=== PATIENT | female | born 1960 | race African-American/Black ===

== ENCOUNTER 2017-01-15 11:41 | Inpatient (IN) | payer OTHER, BC ==
[2017-01-15 13:59] VITALS: BMI 22.8
--- NOTE | 2017-01-15 15:17 | HP ---
CIWA Score - CIWA Score Nausea/Vomitin Muscle Tremors: 3 Anxiety: 3 Agitation: 3 Paroxysmal Sweats: 2 Orientation: 0-Oriented Tacttile Disturbances: 2-Mild Itch/Numbness/Burn Auditory Disturbances: 2-Mild Harshness/Frighten Visual Disturbances: 2-Mild Sensitivity Headache: 2-Mild CIWA-Ar Total Score: 22 Admission ROS BHS - HPI Chief Complaint: I NEED HELP TO STOP DRINKING ALCOHOL Allergies/Adverse Reactions: Allergies Allergy/AdvReac Type Severity Reaction Status Date / Time No Known Allergies Allergy Verified 01/15/17 15:19 History of Present Illness: THIS 56 YEARS OLD FEMALE WITH ALCOHOL DEPENDENCE,WITHDRAWAL SYMPTOM,LAST DETOX FLUSHING 10/22/16 TO 10/27/16 HISTORY OF POLYCYTHEMIA COPD ,ASTHMA CANE AMBULATORY AID BIPOLAR DISORDER,ANXIETY AND DEPRESSION Exam Limitations: No Limitations - Ebola screening Have you traveled outside of the country in the last 21 days: No Have you been sick,other than usual withdrawal symptoms: No - Review of Systems Constitutional: Loss of Appetite, Malaise, Night Sweats, Changes in sleep, Weakness, Unintentional Wgt. Loss EENT: reports: Nose Congestion Respiratory: reports: Other Cardiac: reports: Palpitations GI: reports: Diarrhea, Nausea, Vomiting, Abdominal cramping : reports: No Symptoms Reported Musculoskeletal: reports: Back Pain, Muscle Pain Integumentary: reports: Dryness Neuro: reports: Headache, Tremors Endocrine: reports: No Symptoms Reported Hematology: reports: No Symptoms Reported Psychiatric: reports: Judgement Intact, Mood/Affect Appropiate, Orientated x3, Anxious, Depressed, other (BIPOLAR DISORER) Patient History - Patient Medical History Hx Anemia: No Hx Asthma: Yes (ON ALBUTEROL AND SYMBICORT) Hx Chronic Obstructive Pulmonary Disease (COPD): Yes ( ABOVE) Hx Cancer: No Hx Cardiac Disorders: No Hx Congestive Heart Failure: No Hx Hypertension: No Hx Hypercholesterolemia: No Hx Pacemaker: No HX Cerebrovascular Accident: No Hx Seizures: No Hx Dementia: No Hx Diabetes: No Hx Gastrointestinal Disorders: No Hx Liver Disease: No Hx Genitourinary Disorders: No Hx Sexually Transmitted Disorders: No Hx Renal Disease (ESRD): No Hx Thyroid Disease: No Hx Human Immunodeficiency Virus (HIV): No (LAST 09/29 NEGATIVE) Hx Hepatitis C: No Hx Depression: Yes (ANXIETY) Hx Suicide Attempt: No Hx Bipolar Disorder: Yes Hx Schizophrenia: No Other Medical History: NO SUICIDAL,NO HOMICIDAL - Patient Surgical History Past Surgical History: No - PPD History Previous Implant?: Yes Documented Results: Negative w/o proof PPD to be Administered?: Yes - Reproductive History Patient is a Female of Child Bearing Age (11 -55 yrs old): Yes Patient : No - Smoking Cessation Smoking history: Current every day smoker Have you smoked in the past 12 months: Yes Aproximately how many cigarettes per day: 10 Cigars Per Day: 0 Hx Chewing Tobacco Use: No Initiated information on smoking cessation: Yes 'Breaking Loose' booklet given: 01/15/17 - Substance & Tx. History Hx Alcohol Use: Yes Hx Substance Use: No Substance Use Type: Alcohol Hx Substance Use Treatment: Yes (FLUSHING 10/22/16 TO 10/27/16) Family Disease History - Family Disease History Family Disease History: Other: Mother (EDGARDO,) Admission Physical Exam BHS - Vital Signs Vital Signs: Vital Signs - 24 hr 01/15/17 13:55 Temperature 97 F L Pulse Rate 106 H Respiratory 19 Rate Blood Pressure 129/72 - Physical General Appearance: Yes: Moderate Distress, Tremorous, Irritable, Sweating, Anxious HEENTM: Yes: Hearing grossly Normal, Normal ENT Inspection, Pharynx Normal, Nasal Congestion, Other (NO TEETH DID NOT BRING DENTURE) Respiratory: Yes: Lungs Clear, Normal Breath Sounds, No Respiratory Distress, Other (ASTHMA,COPD) Neck: Yes: Within Normal Limits, Supple, Trachea in good position Breast: Yes: Breast Exam Deferred Cardiology: Yes: Tachycardia Abdominal: Yes: Within Normal Limits, Normal Bowel Sounds, Non Tender, Soft Genitourinary: Yes: Within Normal Limits Back: Yes: Muscle Spasm Musculoskeletal: Yes: Back pain, Muscle Pain Extremities: Yes: Within Normal Limits, Normal Range of Motion, Tremors Neurological: Yes: home builder II-XII NML intact, Alert, Motor Strength 5/5 Integumentary: Yes: Dry Lymphatic: Yes: Within Normal Limits - Diagnostic (1) Alcohol dependence with uncomplicated withdrawal Current Visit: Yes Status: Acute (2) Nicotine dependence Current Visit: Yes Status: Acute (3) Asthma Current Visit: Yes Status: Acute (4) COPD (chronic obstructive pulmonary disease) Current Visit: Yes Status: Acute (5) Leg fracture, right Current Visit: Yes Status: Acute (6) Bipolar disorder Current Visit: Yes Status: Acute (7) Anxiety and depression Current Visit: Yes Status: Acute (8) History of dental problems Current Visit: Yes Status: Acute Cleared for Admission [facility] - Detox or Rehab [facility] Level of Care: Medically Managed Detox Regimen/Protocol: Librium [facility] Breath Alcohol Content Breath Alcohol Content: 0.072 Urine Pregancy Test - Result Urine Test Results: Negative- NO Line Present Urine Drug Screen - Results Drug Screen Negative: Yes
[2017-01-15] MEDS ORDERED: IBUPROFEN 400 MG TABLET (FP) PO PRN (15:44)
[2017-01-15] MEDS ORDERED: chlordiazePOXIDE HCL 25 MG CAPSULE PO PRN (15:44)
[2017-01-15] MEDS ORDERED: LOPERAMIDE HCL 2 MG CAPSULE PO PRN (15:44)
[2017-01-15] MEDS ORDERED: ACETAMINOPHEN 325 MG TABLET (FP) PO PRN (15:44)
[2017-01-15] MEDS ORDERED: P-EPHED 60MG/TRIPROLIDI 2.5MG TABLET PO PRN (15:44)
[2017-01-15] MEDS ORDERED: MAGNESIUM CITRATE 300 ML BOTTLE PO PRN (15:44)
[2017-01-15] MEDS ORDERED: MAGNESIUM HYDROX 2400MG/30ML ORAL SUSPENSION 30 ML CUP PO PRN (15:44)
[2017-01-15] MEDS ORDERED: MAG HYDROX/AL HYDROX/SIMETH 30 ML UNIT-DOSE CUP PO PRN (15:44)
[2017-01-15] MEDS ORDERED: ALBUTEROL SO4 2.5/IPRATROPIUM 0.5 INH SOL 3 ML VIAL.NEB. NEB PRN (15:57)
[2017-01-15] MEDS ORDERED: chlordiazePOXIDE HCL 25 MG CAPSULE PO ONE (16:30)
[2017-01-15] MEDS: NICOTINE 21 MG/24 HOURS TOPICAL PATCH TD SCH (17:59)
[2017-01-15 22:24] LABS: URINE APPEARANCE CLEAR; URINE BILIRUBIN NEGATIVE (NEGATIVE); URINE BLOOD NEGATIVE (NEGATIVE); URINE COLOR COLORLESS; URINE GLUCOSE (UA) NEGATIVE (NEGATIVE); URINE KETONE NEGATIVE (NEGATIVE); URINE LEUK ESTERASE NEGATIVE (NEGATIVE); URINE NITRITE NEGATIVE (NEGATIVE); URINE PROTEIN NEGATIVE (NEGATIVE); URINE UROBILINOGEN NEGATIVE E.U./dl (0.2-1.0)
[2017-01-15] MEDS: THIAMINE HCL 100 MG TABLET (FP) PO SCH (22:40)
[2017-01-15] MEDS: BUDESONIDE/FORMETEROL FUMARATE 160/4.5 mcg INHALER IH SCH (22:40)
[2017-01-15] MEDS: chlordiazePOXIDE HCL 25 MG CAPSULE PO SCH (22:40)
[2017-01-15] MEDS: ALBUTEROL SO4 6.7 GM HFA INHALER IH PRN (22:44)
[2017-01-16] MEDS: chlordiazePOXIDE HCL 25 MG CAPSULE PO SCH ×4 (06:13→22:40)
[2017-01-16 10:14] LABS: MCH 28.7 pg (25.7-33.7); MCHC 32.1 g/dl (32.0-36.0); MEAN CELL VOLUME 89.2 fl (80-96); MEAN PLT VOLUME 10.5 fl (7.5-11.1); PLATELET COUNT 196 K/MM3 (134-434); RDW 16.6 % (11.6-15.6); WHITE BLOOD COUNT 4.8 K/mm3 (4.0-10.0)
[2017-01-16 10:31] LABS: ALBUMIN 3.7 g/dl (3.4-5.0); ANION GAP 11 (8-16); BILIRUBIN,TOTAL 0.5 mg/dL (0.2-1.0); CALCIUM 9.4 mg/dL (8.5-10.1); CO2 27 mmol/L (21-32); CREATININE 0.7 mg/dL (0.55-1.02); GLUCOSE,RANDOM 105 mg/dL (74-106); SGOT/AST 38 U/L (15-37); SGPT/ALT 33 U/L (12-78); TOT PROT 7.4 g/dl (6.4-8.2)
[2017-01-16 10:32] LABS: ALK PHOS 126 U/L (45-117)
[2017-01-16] MEDS: PRENATAL VITAMINS W/ FOLIC ACID TABLET (FP) PO SCH (10:48)
[2017-01-16] MEDS: BUDESONIDE/FORMETEROL FUMARATE 160/4.5 mcg INHALER IH SCH ×2 (10:48→22:50)
[2017-01-16] MEDS: amLODIPine BESYLATE 2.5 MG TABLET (FP) PO SCH (10:48)
[2017-01-16] MEDS: NICOTINE 21 MG/24 HOURS TOPICAL PATCH TD SCH (10:49)
--- NOTE | 2017-01-16 14:33 | PN ---
S CIWA - CIWA Score Nausea/Vomitin Muscle Tremors: 2 Anxiety: 2 Agitation: 2 Paroxysmal Sweats: 2 Orientation: 0-Oriented Tacttile Disturbances: 1-Very Mild Itch/Numbness Auditory Disturbances: 0-None Visual Disturbances: 1-Very Mild Sensitivity Headache: 2-Mild CIWA-Ar Total Score: 14 S Progress Note (SOAP) Subjective: Irritability, sleep interruption, generalized pain Objective: 01/16/17 14:31 Vital Signs - 8 hr 01/16/17 10:56 Temperature 98.1 F Pulse Rate 97 H Respiratory 18 Rate Blood Pressure 139/92 Laboratory Last Values WBC 4.8 K/mm3 (4.0-10.0) 01/16/17 06:10 RBC 4.49 M/mm3 (3.60-5.2) 01/16/17 06:10 Hgb 12.9 GM/dL (10.7-15.3) 01/16/17 06:10 Hct 40.1 % (32.4-45.2) 01/16/17 06:10 MCV 89.2 fl (80-96) 01/16/17 06:10 MCHC 32.1 g/dl (32.0-36.0) 01/16/17 06:10 RDW 16.6 % (11.6-15.6) H 01/16/17 06:10 Plt Count 196 K/MM3 (134-434) 01/16/17 06:10 MPV 10.5 fl (7.5-11.1) 01/16/17 06:10 Sodium 140 mmol/L (136-145) 01/16/17 06:10 Potassium 4.4 mmol/L (3.5-5.1) 01/16/17 06:10 Chloride 102 mmol/L (98-107) 01/16/17 06:10 Carbon Dioxide 27 mmol/L (21-32) 01/16/17 06:10 Anion Gap 11 (8-16) 01/16/17 06:10 BUN 8 mg/dL (7-18) 01/16/17 06:10 Creatinine 0.7 mg/dL (0.55-1.02) 01/16/17 06:10 Creat Clearance w eGFR > 60 (>60) 01/16/17 06:10 Random Glucose 105 mg/dL (74-106) 01/16/17 06:10 Calcium 9.4 mg/dL (8.5-10.1) 01/16/17 06:10 Total Bilirubin 0.5 mg/dL (0.2-1.0) 01/16/17 06:10 AST 38 U/L (15-37) H 01/16/17 06:10 ALT 33 U/L (12-78) 01/16/17 06:10 Alkaline Phosphatase 126 U/L (45-117) H 01/16/17 06:10 Total Protein 7.4 g/dl (6.4-8.2) 01/16/17 06:10 Albumin 3.7 g/dl (3.4-5.0) 01/16/17 06:10 Urine Color Colorless 01/15/17 21:30 Urine Appearance Clear 01/15/17 21:30 Urine pH 5.0 (5.0-8.0) 01/15/17 21:30 Ur Specific [place] < 1.005 (1.001-1.035) 01/15/17 21:30 Urine Protein Negative (NEGATIVE) 01/15/17 21:30 Urine Glucose (UA) Negative (NEGATIVE) 01/15/17 21:30 Urine Ketones Negative (NEGATIVE) 01/15/17 21:30 Urine Blood Negative (NEGATIVE) 01/15/17 21:30 Urine Nitrite Negative (NEGATIVE) 01/15/17 21:30 Urine Bilirubin Negative (NEGATIVE) 01/15/17 21:30 Urine Urobilinogen Negative E.U./dl (0.2-1.0) 01/15/17 21:30 Ur Leukocyte Esterase Negative (NEGATIVE) 01/15/17 21:30 RPR Titer Nonreactive (NONREACTIVE) 01/16/17 06:10 labs noted Assessment: 01/16/17 14:32 withdrawal sx Plan: continue detox
--- NOTE | 2017-01-16 17:26 | CONSULT ---
[facility] Psychiatric Consult - Data Date of interview: 01/16/17 Admission source: [facility] Identifying data: First admission to [facility] for this 56 y/o AA female seeking detox treatment for alcohol dependence.Patient is single,a mother of two ,homeless (care home),disabled and supported on [facility] benefits. Substance Abuse History: - Smoking Cessation. Smoking history: Current every day smoker. Have you smoked in the past 12 months: Yes. Aproximately how many cigarettes per day: 10. Cigars Per Day: 0. Hx Chewing Tobacco Use: No. Initiated information on smoking cessation: Yes. 'Breaking Loose' booklet given : 01/15/17. - Substance & Tx. History. Hx Alcohol Use: Yes. Hx Substance Use : No. Substance Use Type: Alcohol. Hx Substance Use Treatment: Yes (FLUSHING 10/22/16 TO 10/27/16). Confirmed by patient. Medical History: COPD,bronchial asthma,hypertension,arthritis and polycythemia. Psychiatric History: Diagnosed with " Bipolar Disorder and MDD ".Patient reports history of one psychiatric hospitalization at [facility] in [place], [place] (1998).Ms Schneider indicates that she gets her outpatient psychiatric services at the [facility] in [facility].Prescribed risperdal 0.5 mg po bid + trazodone 50 mg po hs + gabapentin 600 mg po tid.Patient states that she took her medications two days ago (prior to [facility] visit).Eager to resume her medications on 6 .No history of suicide attempts. Physical/Sexual Abuse/Trauma History: Patient denies. Additional Comment: Drug Screen is negative. Mental Status Exam - Mental Status Exam Alert and Oriented to: Time, Place, Person Cognitive Function: Good Patient Appearance: Well Groomed (small frame,petite and appearing older than stated age) Mood: Anxious (about getting her medications according to schedule), Hopeful Affect: Appropriate, Normal Range Patient Behavior: Fatigued, Appropriate, Cooperative Speech Pattern: Clear Voice Loudness: Normal Thought Process: Goal Oriented Thought Disorder: Not Present Hallucinations: Denies Suicidal Ideation: Denies Homicidal Ideation: Denies Insight/Judgement: Fair Sleep: Poorly, Difficulty falling asleep Appetite: Fair Gait/Station: Other (walks with cane) Psychiatric Findings - Problem List ([place] 1, 2,3) (1) Alcohol dependence with uncomplicated withdrawal Current Visit: Yes Status: Acute (2) Nicotine dependence Current Visit: Yes Status: Acute (3) Bipolar disorder Current Visit: Yes Status: Chronic (4) Asthma Current Visit: Yes Status: Chronic (5) COPD (chronic obstructive pulmonary disease) Current Visit: Yes Status: Chronic (6) History of dental problems Current Visit: Yes Status: Chronic (7) Leg fracture, right Current Visit: Yes Status: Chronic (8) Insomnia Current Visit: Yes Status: Acute - Initial Treatment Plan Initial Treatment Plan: Psychoeducation.Detoxification.Medications resumed (see Psychiatric History section for details).Side effects/benefits of each drug are discussed with patient.She agrees with this plan of care.Observation.
[2017-01-16] MEDS: ZOLPIDEM TARTRATE 5 MG TABLET PO SCH (22:40)
[2017-01-16] MEDS: GABAPENTIN 300 MG CAPSULE (FP) PO SCH (22:40)
[2017-01-16] MEDS: THIAMINE HCL 100 MG TABLET (FP) PO SCH (22:50)
[2017-01-16] MEDS: risperiDONE 0.5 MG TABLET (FP) PO SCH (22:59)
[2017-01-17] MEDS: chlordiazePOXIDE HCL 25 MG CAPSULE PO SCH ×3 (05:48→17:36)
[2017-01-17] MEDS: GABAPENTIN 300 MG CAPSULE (FP) PO SCH ×3 (05:49→22:29)
[2017-01-17] MEDS: PRENATAL VITAMINS W/ FOLIC ACID TABLET (FP) PO SCH (10:29)
[2017-01-17] MEDS: BUDESONIDE/FORMETEROL FUMARATE 160/4.5 mcg INHALER IH SCH ×2 (10:29→22:30)
[2017-01-17] MEDS: amLODIPine BESYLATE 2.5 MG TABLET (FP) PO SCH (10:30)
[2017-01-17] MEDS: risperiDONE 0.5 MG TABLET (FP) PO SCH ×2 (10:30→22:30)
[2017-01-17] MEDS: NICOTINE 21 MG/24 HOURS TOPICAL PATCH TD SCH (10:31)
--- NOTE | 2017-01-17 10:44 | PN ---
S CIWA - CIWA Score Nausea/Vomitin-No Nausea/No Vomiting Muscle Tremors: 1-None Visible, but [place] Anxiety: 3 Agitation: 2 Paroxysmal Sweats: 3 Orientation: 0-Oriented Tacttile Disturbances: 0-None Auditory Disturbances: 0-None Visual Disturbances: 0-None Headache: 0-None Present CIWA-Ar Total Score: 9 BHS Progress Note (SOAP) Subjective: Sweating,anxiety,tremors,restless,interrupted sleep. Objective: 01/17/17 10:42 Vital Signs - 8 hr 01/17/17 01/17/17 01/17/17 03:30 06:00 09:55 Temperature 98.2 F 98.1 F Pulse Rate 92 H 93 H Respiratory 18 16 16 Rate Blood Pressure 125/88 139/93 Laboratory Tests 01/15/17 01/16/17 01/16/17 21:30 06:10 06:10 WBC 4.8 RBC 4.49 Hgb 12.9 Hct 40.1 MCV 89.2 MCHC 32.1 RDW 16.6 H Plt Count 196 MPV 10.5 Sodium 140 Potassium 4.4 Chloride 102 Carbon Dioxide 27 Anion Gap 11 BUN 8 Creatinine 0.7 Creat Clearance w eGFR > 60 Random Glucose 105 Calcium 9.4 Total Bilirubin 0.5 AST 38 H ALT 33 Alkaline Phosphatase 126 H Total Protein 7.4 Albumin 3.7 Urine Color Colorless Urine Appearance Clear Urine pH 5.0 Ur Specific [place] < 1.005 Urine Protein Negative Urine Glucose (UA) Negative Urine Ketones Negative Urine Blood Negative Urine Nitrite Negative Urine Bilirubin Negative Urine Urobilinogen Negative Ur Leukocyte Esterase Negative RPR Titer 01/16/17 06:10 WBC RBC Hgb Hct MCV MCHC RDW Plt Count MPV Sodium Potassium Chloride Carbon Dioxide Anion Gap BUN Creatinine Creat Clearance w eGFR Random Glucose Calcium Total Bilirubin AST ALT Alkaline Phosphatase Total Protein Albumin Urine Color Urine Appearance Urine pH Ur Specific [place] Urine Protein Urine Glucose (UA) Urine Ketones Urine Blood Urine Nitrite Urine Bilirubin Urine Urobilinogen Ur Leukocyte Esterase RPR Titer Nonreactive labs noted Assessment: 01/17/17 10:43 Withdrawal sx. Plan: Continue detox
[2017-01-17] MEDS: ZOLPIDEM TARTRATE 5 MG TABLET PO SCH (22:29)
[2017-01-17] MEDS: chlordiazePOXIDE 5 MG CAPSULE PO SCH (22:30)
[2017-01-17] MEDS: THIAMINE HCL 100 MG TABLET (FP) PO SCH (22:30)
[2017-01-18] MEDS: diphenhydrAMINE HCL 50 MG CAPSULE PO PRN (02:39)
[2017-01-18] MEDS: chlordiazePOXIDE 5 MG CAPSULE PO SCH ×3 (06:10→17:37)
[2017-01-18] MEDS: GABAPENTIN 300 MG CAPSULE (FP) PO SCH ×3 (06:10→22:39)
[2017-01-18] MEDS: hydrOXYzine PAMOATE 25 MG CAPSULE (FP) PO PRN (06:13)
--- NOTE | 2017-01-18 09:12 | EKG ---
Test Reason : Blood Pressure : / mmHG Vent. Rate : 095 BPM Atrial Rate : 095 BPM P-R Int : 168 ms QRS Dur : 066 ms QT Int : 368 ms P-R-T Axes : 078 074 072 degrees QTc Int : 462 ms NORMAL SINUS RHYTHM POSSIBLE LEFT ATRIAL ENLARGEMENT SEPTAL INFARCT , AGE UNDETERMINED ABNORMAL ECG NO PREVIOUS ECGS AVAILABLE Confirmed by RADHA GONZALEZ MD ([id number]) on 01/18/2017 9:11:44 AM Referred By: Confirmed By:RADHA GONZALEZ MD
[2017-01-18] MEDS: NICOTINE 21 MG/24 HOURS TOPICAL PATCH TD SCH (10:44)
[2017-01-18] MEDS: PRENATAL VITAMINS W/ FOLIC ACID TABLET (FP) PO SCH (10:44)
[2017-01-18] MEDS: amLODIPine BESYLATE 2.5 MG TABLET (FP) PO SCH (10:45)
[2017-01-18] MEDS: BUDESONIDE/FORMETEROL FUMARATE 160/4.5 mcg INHALER IH SCH ×2 (10:45→22:38)
[2017-01-18] MEDS: risperiDONE 0.5 MG TABLET (FP) PO SCH ×2 (10:45→22:39)
--- NOTE | 2017-01-18 11:16 | PN ---
BHS Progress Note (SOAP) Subjective: feeling better tired little sweats Objective: 01/18/17 11:15 Vital Signs Temperature 96.3 F L 01/18/17 10:02 Pulse Rate 91 H 01/18/17 10:02 Respiratory Rate 20 01/18/17 10:02 Blood Pressure 147/87 01/18/17 10:02 O2 Sat by Pulse Oximetry (%) awake/alert ambulating no acute distress Assessment: 01/18/17 11:16 withdrawal sx Plan: continue detox increase fluids d/c in am
[2017-01-18] MEDS: ALBUTEROL SO4 6.7 GM HFA INHALER IH PRN (15:59)
[2017-01-18] MEDS: chlordiazePOXIDE HCL 10 MG CAPSULE PO SCH (22:39)
[2017-01-18] MEDS: ZOLPIDEM TARTRATE 5 MG TABLET PO SCH (22:39)
[2017-01-18] MEDS: THIAMINE HCL 100 MG TABLET (FP) PO SCH (22:39)
[2017-01-19] MEDS: hydrOXYzine PAMOATE 25 MG CAPSULE (FP) PO PRN (04:05)
[2017-01-19] MEDS: GABAPENTIN 300 MG CAPSULE (FP) PO SCH ×3 (05:56→21:32)
[2017-01-19] MEDS: chlordiazePOXIDE HCL 10 MG CAPSULE PO SCH ×2 (05:56→09:59)
--- NOTE | 2017-01-19 09:10 | DS ---
[facility] Detox Discharge Summary Admission Date: 01/15/17 Discharge Date: 01/19/17 - History Present History: Alcohol Dependence - Physical Exam Results Vital Signs: Vital Signs Temperature 98.2 F 01/19/17 06:14 Pulse Rate 95 H 01/19/17 06:14 Respiratory Rate 18 01/19/17 06:14 Blood Pressure 136/74 01/19/17 06:14 O2 Sat by Pulse Oximetry (%) - Treatment Hospital Course: Detox Protocol Followed, Detoxed Safely, Responded well, Discharged Condition Good - Medication Discharge Medications: Ambulatory Orders Albuterol Sulfate Inhaler - [Ventolin Hfa Inhaler -] 2 inh PO Q6H PRN 01/15/17 Amlodipine Besylate [Norvasc -] 2.5 mg PO DAILY 01/15/17 Budesonide/Formeterol Fumarate [SYMBICORT 160/4.5mcg -] 1 inh PO BID 01/15/17 Gabapentin [Neurontin] 600 mg PO TID 01/15/17 Risperidone [Risperdal -] 0.5 mg PO BID 01/15/17 Trazodone HCl [Desyrel -] 50 mg PO HS 01/15/17 Gabapentin [Neurontin] 600 mg PO TID #60 tablet 01/16/17 Risperidone [Risperdal -] 0.5 mg PO BID #60 tablet 01/16/17 Trazodone HCl [Desyrel -] 50 mg PO HS #30 tablet 01/16/17 - Diagnosis (1) Alcohol dependence with uncomplicated withdrawal Current Visit: Yes Status: Chronic (2) Anxiety and depression Current Visit: Yes Status: Chronic (3) Nicotine dependence Current Visit: Yes Status: Chronic Qualifiers: Nicotine product type: cigarettes Substance use status: uncomplicated Qualified Code(s): F17.210 - Nicotine dependence, cigarettes, uncomplicated (4) Asthma Current Visit: Yes Status: Chronic Qualifiers: Asthma severity: mild intermittent (5) Bipolar disorder Current Visit: Yes Status: Chronic Qualifiers: Current episode severity: unspecified - AMA Did Patient Leave Against Medical Advice: No
[2017-01-19] MEDS: amLODIPine BESYLATE 2.5 MG TABLET (FP) PO SCH (09:58)
[2017-01-19] MEDS: PRENATAL VITAMINS W/ FOLIC ACID TABLET (FP) PO SCH (09:58)
[2017-01-19] MEDS: risperiDONE 0.5 MG TABLET (FP) PO SCH ×2 (09:59→21:33)
[2017-01-19] MEDS: BUDESONIDE/FORMETEROL FUMARATE 160/4.5 mcg INHALER IH SCH ×2 (09:59→21:33)
[2017-01-19] MEDS: NICOTINE 21 MG/24 HOURS TOPICAL PATCH TD SCH (10:02)
[2017-01-19] MEDS ORDERED: PT OWN MED DRAWER 7, Y5N ONE (13:01)
[2017-01-19] MEDS: ALBUTEROL SO4 6.7 GM HFA INHALER IH PRN (13:05)
[2017-01-19] MEDS ORDERED: ALBUTEROL SO4 2.5/IPRATROPIUM 0.5 INH SOL 3 ML VIAL.NEB. NEB PRN (14:22)
--- NOTE | 2017-01-19 14:27 | PN ---
BHS Progress Note Note: Pt. c/o chest because she could not find glasses. EKG done except for ventricular rate is unchanged from previous EKG. Vital Signs - 8 hr 01/19/17 01/19/17 01/19/17 11:06 13:25 13:48 Temperature 98.7 F 99 F Pulse Rate 108 H 104 H 104 H Respiratory 18 26 H 26 H Rate Blood Pressure 136/79 103/65 103/65 O2 Sat by Pulse 99 Oximetry (%) Lungs : Clear to A&P Heart : RR, No murmur Dx. : anxiety attack
--- NOTE | 2017-01-19 15:05 | EKG ---
Test Reason : Blood Pressure : / mmHG Vent. Rate : 100 BPM Atrial Rate : 100 BPM P-R Int : 162 ms QRS Dur : 066 ms QT Int : 346 ms P-R-T Axes : 077 074 084 degrees QTc Int : 446 ms NORMAL SINUS RHYTHM T WAVE ABNORMALITY, CONSIDER ANTERIOR ISCHEMIA ABNORMAL ECG WHEN COMPARED WITH ECG OF 15-JAN-2017 16:48, T WAVE VARIATION Confirmed by NICHO DOVER MD ([id number]) on 01/19/2017 3:05:26 PM Referred By: GLADIS MALDONADO Confirmed By:NICHO DOVER MD
[2017-01-19] MEDS: traZODone HCL 50 MG TABLET (FP) PO SCH (21:32)
[2017-01-19] MEDS: THIAMINE HCL 100 MG TABLET (FP) PO SCH (21:32)
[2017-01-20] MEDS: GABAPENTIN 300 MG CAPSULE (FP) PO SCH ×3 (06:19→21:27)
[2017-01-20] MEDS ORDERED: PT OWN MED DRAWER 7, Y5N ONE (09:00)
--- NOTE | 2017-01-20 09:39 | HP ---
Psychiatrist Admission - Data Date of interview: 01/20/17 Admission source: [address] [place] [address] Vital Signs: Vital Signs - 24 hr 01/19/17 01/19/17 01/19/17 11:06 13:25 13:48 Temperature 98.7 F 99 F Pulse Rate 108 H 104 H 104 H Respiratory 18 26 H 26 H Rate Blood Pressure 136/79 103/65 103/65 O2 Sat by Pulse 99 Oximetry (%) 01/20/17 01/20/17 01/20/17 00:30 03:30 07:21 Temperature 98.9 F Pulse Rate 98 H Respiratory 16 16 18 Rate Blood Pressure 129/85 O2 Sat by Pulse Oximetry (%) Allergies/Adverse Reactions: Allergies Allergy/AdvReac Type Severity Reaction Status Date / Time No Known Allergies Allergy Verified 01/15/17 15:19 Concur with the findings of this exam: Yes - Substance Abuse/Tx History Hx Alcohol Use: Yes Hx Substance Use: Yes Hx Substance Use Treatment: Yes - Admission Criteria Previous failed treatment: Yes Poor recovery environment: Yes Comorbidities: Yes Lacks judgement: Yes Psychiatric Findings - Problem List ([place] 1, 2,3) (1) Asthma Current Visit: Yes Status: Chronic Qualifiers: Asthma severity: mild intermittent (2) Bipolar disorder Current Visit: Yes Status: Chronic Qualifiers: Current episode severity: unspecified (3) COPD (chronic obstructive pulmonary disease) Current Visit: Yes Status: Chronic (4) Leg fracture, right Current Visit: Yes Status: Chronic (5) Alcohol dependence Current Visit: Yes Status: Chronic - Initial Treatment Plan Initial Treatment Plan: Will monitor progress.
[2017-01-20] MEDS: NICOTINE 21 MG/24 HOURS TOPICAL PATCH TD SCH (09:56)
[2017-01-20] MEDS: PRENATAL VITAMINS W/ FOLIC ACID TABLET (FP) PO SCH (09:57)
[2017-01-20] MEDS: risperiDONE 0.5 MG TABLET (FP) PO SCH ×2 (09:57→21:27)
[2017-01-20] MEDS: amLODIPine BESYLATE 2.5 MG TABLET (FP) PO SCH (09:57)
[2017-01-20] MEDS: BUDESONIDE/FORMETEROL FUMARATE 160/4.5 mcg INHALER IH SCH ×2 (09:58→21:28)
[2017-01-20 10:39] LABS: ALK PHOS 88 U/L (45-117); SGOT/AST 17 U/L (15-37); TROPONIN I < 0.02 ng/ml (0.00-0.05)
--- NOTE | 2017-01-20 14:31 | HP ---
Psychiatrist Admission - Data Date of interview: 01/20/17 Admission source: [facility] Identifying data: This is the first admission to [address] [place] [address] rehabilitation for this 56 years AA single mother of 2 (one son 5 years ago),homeless,supported by SSD. Medical History: Polycytemia,HTN,BA,COPD,Chronic arthritis. Psychiatric History: Patient was dx with Bipolar disorder in 1998 after her psychiatric hospitalization to [facility] in [facility] after her first psychotic episode with depression,anxiety induced by drinking problems. Sees psychiatrist at [facility].Current meddications: Risperidone 0,5mg po bid,Paxil 30 mg po daily,Gabapentin 600 mg po tid and Trazodone 50 mg po hs. Physical/Sexual Abuse/Trauma History: denies Vital Signs: Vital Signs - 24 hr 01/20/17 01/20/17 01/20/17 00:30 03:30 07:21 Temperature 98.9 F Pulse Rate 98 H Respiratory 16 16 18 Rate Blood Pressure 129/85 01/20/17 09:45 Temperature Pulse Rate 98 H Respiratory Rate Blood Pressure 116/72 Allergies/Adverse Reactions: Allergies Allergy/AdvReac Type Severity Reaction Status Date / Time No Known Allergies Allergy Verified 01/15/17 15:19 Date of last physical exam: 01/15/17 Concur with the findings of this exam: Yes - Substance Abuse/Tx History Hx Alcohol Use: Yes (reports drining since her ,mostly beer 6 packs daily) Hx Substance Use: No Substance Use Type: Alcohol Hx Substance Use Treatment: Yes (this is her first inpatient rehabilitation treatment) - Admission Criteria Previous failed treatment: Yes Poor recovery environment: Yes Comorbidities: Yes Lacks judgement: Yes Mental Status Exam - Mental Status Exam Alert and Oriented to: Time, Place, Person Cognitive Function: Grossly Intact Patient Appearance: Unkempt Mood: Sad, Anxious Affect: Mood Congruent, Labile Patient Behavior: Cooperative Speech Pattern: Clear Voice Loudness: Normal Thought Process: Goal Oriented Thought Disorder: Being Controlled Hallucinations: Denies Suicidal Ideation: Denies Homicidal Ideation: Denies Insight/Judgement: Fair Sleep: Fair Appetite: Good Muscle strength/Tone: Normal Gait/Station: Normal Psychiatric Findings - Problem List ([place] 1, 2,3) (1) Asthma Current Visit: Yes Status: Chronic Qualifiers: Asthma severity: mild intermittent (2) Bipolar disorder Current Visit: Yes Status: Chronic Qualifiers: Current episode severity: unspecified (3) COPD (chronic obstructive pulmonary disease) Current Visit: Yes Status: Chronic (4) Leg fracture, right Current Visit: Yes Status: Chronic (5) Alcohol dependence Current Visit: Yes Status: Chronic - Initial Treatment Plan Initial Treatment Plan: Continue Paxil 30 mg po daily,Neurontin 600 mg po tid and Trazodone 50 mg po hs,Risperidone 0,5 mg po bid. Will monitor progress.
[2017-01-20] MEDS: PARoxetine HCL 10 MG TABLET (FP) PO SCH (15:17)
[2017-01-20] MEDS: traZODone HCL 50 MG TABLET (FP) PO SCH (21:27)
[2017-01-20] MEDS: THIAMINE HCL 100 MG TABLET (FP) PO SCH (21:27)
[2017-01-21] MEDS: GABAPENTIN 300 MG CAPSULE (FP) PO SCH ×3 (06:09→21:17)
[2017-01-21] MEDS ORDERED: PT OWN MED DRAWER 7, Y5N ONE (08:45)
[2017-01-21] MEDS: amLODIPine BESYLATE 2.5 MG TABLET (FP) PO SCH (09:52)
[2017-01-21] MEDS: PARoxetine HCL 10 MG TABLET (FP) PO SCH (09:53)
[2017-01-21] MEDS: risperiDONE 0.5 MG TABLET (FP) PO SCH ×2 (09:53→21:17)
[2017-01-21] MEDS: PRENATAL VITAMINS W/ FOLIC ACID TABLET (FP) PO SCH (09:53)
[2017-01-21] MEDS: BUDESONIDE/FORMETEROL FUMARATE 160/4.5 mcg INHALER IH SCH ×2 (09:54→21:18)
[2017-01-21] MEDS: NICOTINE 21 MG/24 HOURS TOPICAL PATCH TD SCH (09:54)
[2017-01-21] MEDS: FUROSEMIDE 40 MG TABLET (FP) PO SCH (13:36)
[2017-01-21] MEDS: COLLOIDAL OATMEAL 1 BAR EACH TP PRN (13:38)
[2017-01-21] MEDS: traZODone HCL 50 MG TABLET (FP) PO SCH (21:17)
[2017-01-21] MEDS: THIAMINE HCL 100 MG TABLET (FP) PO SCH (21:17)
[2017-01-22] MEDS: GABAPENTIN 300 MG CAPSULE (FP) PO SCH ×3 (05:57→21:31)
[2017-01-22] MEDS: NICOTINE 21 MG/24 HOURS TOPICAL PATCH TD SCH (10:14)
[2017-01-22] MEDS: PARoxetine HCL 10 MG TABLET (FP) PO SCH (10:14)
[2017-01-22] MEDS: amLODIPine BESYLATE 2.5 MG TABLET (FP) PO SCH (10:14)
[2017-01-22] MEDS: PRENATAL VITAMINS W/ FOLIC ACID TABLET (FP) PO SCH (10:14)
[2017-01-22] MEDS: risperiDONE 0.5 MG TABLET (FP) PO SCH ×2 (10:14→21:31)
[2017-01-22] MEDS: FUROSEMIDE 40 MG TABLET (FP) PO SCH (10:14)
[2017-01-22] MEDS: BUDESONIDE/FORMETEROL FUMARATE 160/4.5 mcg INHALER IH SCH ×2 (10:15→21:30)
[2017-01-22] MEDS ORDERED: PT OWN MED DRAWER 7, Y5N ONE (19:33)
[2017-01-22] MEDS: traZODone HCL 50 MG TABLET (FP) PO SCH (21:30)
[2017-01-22] MEDS: THIAMINE HCL 100 MG TABLET (FP) PO SCH (22:21)
[2017-01-23] MEDS: GABAPENTIN 300 MG CAPSULE (FP) PO SCH ×3 (06:41→21:26)
[2017-01-23] MEDS ORDERED: PT OWN MED DRAWER 7, Y5N ONE ×2 (09:03→21:28)
[2017-01-23] MEDS: PRENATAL VITAMINS W/ FOLIC ACID TABLET (FP) PO SCH (09:46)
[2017-01-23] MEDS: FUROSEMIDE 40 MG TABLET (FP) PO SCH (09:47)
[2017-01-23] MEDS: amLODIPine BESYLATE 2.5 MG TABLET (FP) PO SCH (09:47)
[2017-01-23] MEDS: risperiDONE 0.5 MG TABLET (FP) PO SCH ×2 (09:47→21:29)
[2017-01-23] MEDS: PARoxetine HCL 10 MG TABLET (FP) PO SCH (09:47)
[2017-01-23] MEDS: NICOTINE 21 MG/24 HOURS TOPICAL PATCH TD SCH (09:48)
[2017-01-23] MEDS: BUDESONIDE/FORMETEROL FUMARATE 160/4.5 mcg INHALER IH SCH ×2 (09:48→21:27)
[2017-01-23] MEDS: MENTHOL/PHENOL 1 EACH UD MM PRN (09:50)
[2017-01-23] MEDS: traZODone HCL 50 MG TABLET (FP) PO SCH (21:26)
[2017-01-23] MEDS: THIAMINE HCL 100 MG TABLET (FP) PO SCH (21:26)
[2017-01-24] MEDS: GABAPENTIN 300 MG CAPSULE (FP) PO SCH ×3 (06:41→21:31)
[2017-01-24] MEDS: guaiFENesin/D-METHORPHAN HB 10 ML UNIT-DOSE CUPS PO PRN ×3 (06:42→21:33)
[2017-01-24] MEDS ORDERED: ALBUTEROL SO4 2.5/IPRATROPIUM 0.5 INH SOL 3 ML VIAL.NEB. NEB PRN (07:04)
[2017-01-24] MEDS: ALBUTEROL SO4 6.7 GM HFA INHALER IH PRN (07:27)
[2017-01-24] MEDS ORDERED: PT OWN MED DRAWER 7, Y5N ONE ×2 (08:26→09:51)
[2017-01-24] MEDS: amLODIPine BESYLATE 2.5 MG TABLET (FP) PO SCH (09:48)
[2017-01-24] MEDS: PARoxetine HCL 10 MG TABLET (FP) PO SCH (09:48)
[2017-01-24] MEDS: PRENATAL VITAMINS W/ FOLIC ACID TABLET (FP) PO SCH (09:48)
[2017-01-24] MEDS: NICOTINE 21 MG/24 HOURS TOPICAL PATCH TD SCH (09:48)
[2017-01-24] MEDS: BUDESONIDE/FORMETEROL FUMARATE 160/4.5 mcg INHALER IH SCH ×2 (09:51→21:33)
[2017-01-24] MEDS: MENTHOL/PHENOL 1 EACH UD MM PRN (09:52)
[2017-01-24] MEDS: risperiDONE 0.5 MG TABLET (FP) PO SCH ×2 (10:40→21:32)
[2017-01-24] MEDS: THIAMINE HCL 100 MG TABLET (FP) PO SCH (21:31)
[2017-01-24] MEDS: traZODone HCL 50 MG TABLET (FP) PO SCH (21:31)
[2017-01-25] MEDS: guaiFENesin/D-METHORPHAN HB 10 ML UNIT-DOSE CUPS PO PRN ×2 (06:56→21:21)
[2017-01-25] MEDS: GABAPENTIN 300 MG CAPSULE (FP) PO SCH ×3 (06:56→21:19)
[2017-01-25] MEDS: MENTHOL/PHENOL 1 EACH UD MM PRN (06:57)
[2017-01-25] MEDS: NICOTINE 21 MG/24 HOURS TOPICAL PATCH TD SCH (09:54)
[2017-01-25] MEDS: amLODIPine BESYLATE 2.5 MG TABLET (FP) PO SCH (09:54)
[2017-01-25] MEDS: BUDESONIDE/FORMETEROL FUMARATE 160/4.5 mcg INHALER IH SCH ×2 (09:55→21:22)
[2017-01-25] MEDS: PRENATAL VITAMINS W/ FOLIC ACID TABLET (FP) PO SCH (09:55)
[2017-01-25] MEDS: PARoxetine HCL 10 MG TABLET (FP) PO SCH (09:55)
[2017-01-25] MEDS: risperiDONE 0.5 MG TABLET (FP) PO SCH ×2 (09:55→21:19)
[2017-01-25] MEDS: traZODone HCL 50 MG TABLET (FP) PO SCH (21:19)
[2017-01-25] MEDS: THIAMINE HCL 100 MG TABLET (FP) PO SCH (21:19)
[2017-01-25] MEDS ORDERED: PT OWN MED DRAWER 7, Y5N ONE (21:23)
[2017-01-26] MEDS: guaiFENesin/D-METHORPHAN HB 10 ML UNIT-DOSE CUPS PO PRN ×3 (06:07→21:18)
[2017-01-26] MEDS: GABAPENTIN 300 MG CAPSULE (FP) PO SCH ×3 (06:07→21:16)
[2017-01-26] MEDS: MENTHOL/PHENOL 1 EACH UD MM PRN ×3 (06:08→21:18)
[2017-01-26] MEDS: amLODIPine BESYLATE 2.5 MG TABLET (FP) PO SCH ×2 (09:59→10:07)
[2017-01-26] MEDS: NICOTINE 21 MG/24 HOURS TOPICAL PATCH TD SCH (09:59)
[2017-01-26] MEDS: PARoxetine HCL 10 MG TABLET (FP) PO SCH (09:59)
[2017-01-26] MEDS: PRENATAL VITAMINS W/ FOLIC ACID TABLET (FP) PO SCH (09:59)
[2017-01-26] MEDS: risperiDONE 0.5 MG TABLET (FP) PO SCH ×2 (09:59→21:16)
[2017-01-26] MEDS: BUDESONIDE/FORMETEROL FUMARATE 160/4.5 mcg INHALER IH SCH ×2 (09:59→21:15)
[2017-01-26] MEDS ORDERED: PT OWN MED DRAWER 7, Y5N ONE (20:34)
[2017-01-26] MEDS: traZODone HCL 50 MG TABLET (FP) PO SCH (21:15)
[2017-01-26] MEDS: ALBUTEROL SO4 6.7 GM HFA INHALER IH PRN (21:15)
[2017-01-26] MEDS: THIAMINE HCL 100 MG TABLET (FP) PO SCH (21:16)
[2017-01-27] MEDS: GABAPENTIN 300 MG CAPSULE (FP) PO SCH ×3 (06:08→21:19)
[2017-01-27] MEDS ORDERED: PT OWN MED DRAWER 7, Y5N ONE (08:53)
[2017-01-27] MEDS: guaiFENesin/D-METHORPHAN HB 10 ML UNIT-DOSE CUPS PO PRN ×2 (10:07→21:20)
[2017-01-27] MEDS: COLLOIDAL OATMEAL 1 BAR EACH TP PRN (10:09)
[2017-01-27] MEDS: PRENATAL VITAMINS W/ FOLIC ACID TABLET (FP) PO SCH (10:09)
[2017-01-27] MEDS: BUDESONIDE/FORMETEROL FUMARATE 160/4.5 mcg INHALER IH SCH ×2 (10:09→21:22)
[2017-01-27] MEDS: amLODIPine BESYLATE 2.5 MG TABLET (FP) PO SCH (10:09)
[2017-01-27] MEDS: PARoxetine HCL 10 MG TABLET (FP) PO SCH (10:10)
[2017-01-27] MEDS: NICOTINE 21 MG/24 HOURS TOPICAL PATCH TD SCH (10:11)
[2017-01-27] MEDS: MENTHOL/PHENOL 1 EACH UD MM PRN (10:11)
[2017-01-27] MEDS: risperiDONE 0.5 MG TABLET (FP) PO SCH ×2 (10:40→21:19)
[2017-01-27] MEDS: ALBUTEROL SO4 6.7 GM HFA INHALER IH PRN (10:41)
[2017-01-27] MEDS: traZODone HCL 50 MG TABLET (FP) PO SCH (21:19)
[2017-01-27] MEDS: THIAMINE HCL 100 MG TABLET (FP) PO SCH (21:19)
[2017-01-28] MEDS: GABAPENTIN 300 MG CAPSULE (FP) PO SCH ×3 (06:05→21:26)
[2017-01-28] MEDS: guaiFENesin/D-METHORPHAN HB 10 ML UNIT-DOSE CUPS PO PRN ×3 (06:06→21:27)
[2017-01-28] MEDS: MENTHOL/PHENOL 1 EACH UD MM PRN ×3 (06:07→21:30)
[2017-01-28] MEDS: risperiDONE 0.5 MG TABLET (FP) PO SCH ×2 (09:58→21:27)
[2017-01-28] MEDS: PARoxetine HCL 10 MG TABLET (FP) PO SCH (09:58)
[2017-01-28] MEDS: BUDESONIDE/FORMETEROL FUMARATE 160/4.5 mcg INHALER IH SCH ×2 (09:58→21:30)
[2017-01-28] MEDS: PRENATAL VITAMINS W/ FOLIC ACID TABLET (FP) PO SCH (09:58)
[2017-01-28] MEDS: amLODIPine BESYLATE 2.5 MG TABLET (FP) PO SCH (09:58)
[2017-01-28] MEDS: NICOTINE 21 MG/24 HOURS TOPICAL PATCH TD SCH (09:58)
[2017-01-28] MEDS ORDERED: PT OWN MED DRAWER 7, Y5N ONE (10:03)
--- NOTE | 2017-01-28 14:15 | PN ---
BHS Progress Note Note: swelling and tenderness lt. knee P : x-ray motrin 800mg q6h bacitracin oint'
[2017-01-28] MEDS: THIAMINE HCL 100 MG TABLET (FP) PO SCH (21:26)
[2017-01-28] MEDS: traZODone HCL 50 MG TABLET (FP) PO SCH (21:26)
[2017-01-28] MEDS: BACITRACIN 0.9 GM PACKET TP SCH (21:27)
[2017-01-28] MEDS: IBUPROFEN 400 MG TABLET (FP) PO PRN (21:28)
[2017-01-29] MEDS: GABAPENTIN 300 MG CAPSULE (FP) PO SCH ×3 (06:06→21:18)
[2017-01-29] MEDS ORDERED: PT OWN MED DRAWER 7, Y5N ONE ×2 (09:02→19:15)
[2017-01-29] MEDS: risperiDONE 0.5 MG TABLET (FP) PO SCH ×2 (09:54→21:18)
[2017-01-29] MEDS: BACITRACIN 0.9 GM PACKET TP SCH ×2 (09:54→21:17)
[2017-01-29] MEDS: PARoxetine HCL 10 MG TABLET (FP) PO SCH (09:54)
[2017-01-29] MEDS: PRENATAL VITAMINS W/ FOLIC ACID TABLET (FP) PO SCH (09:54)
[2017-01-29] MEDS: amLODIPine BESYLATE 2.5 MG TABLET (FP) PO SCH (09:54)
[2017-01-29] MEDS: BUDESONIDE/FORMETEROL FUMARATE 160/4.5 mcg INHALER IH SCH ×2 (09:55→21:18)
[2017-01-29] MEDS: NICOTINE 21 MG/24 HOURS TOPICAL PATCH TD SCH (09:55)
[2017-01-29] MEDS: guaiFENesin/D-METHORPHAN HB 10 ML UNIT-DOSE CUPS PO PRN ×2 (09:57→21:18)
[2017-01-29] MEDS: MENTHOL/PHENOL 1 EACH UD MM PRN ×2 (09:57→21:19)
[2017-01-29] MEDS: IBUPROFEN 400 MG TABLET (FP) PO PRN ×2 (13:13→21:19)
--- NOTE | 2017-01-29 14:44 | PN ---
BHS Progress Note Note: x-ray left knee is negative
[2017-01-29] MEDS: THIAMINE HCL 100 MG TABLET (FP) PO SCH (21:18)
[2017-01-29] MEDS: traZODone HCL 50 MG TABLET (FP) PO SCH (21:18)
[2017-01-30] MEDS: GABAPENTIN 300 MG CAPSULE (FP) PO SCH ×3 (06:27→21:08)
[2017-01-30] MEDS: BUDESONIDE/FORMETEROL FUMARATE 160/4.5 mcg INHALER IH SCH ×2 (09:43→21:10)
[2017-01-30] MEDS: NICOTINE 21 MG/24 HOURS TOPICAL PATCH TD SCH (09:43)
[2017-01-30] MEDS: amLODIPine BESYLATE 2.5 MG TABLET (FP) PO SCH (09:44)
[2017-01-30] MEDS: BACITRACIN 0.9 GM PACKET TP SCH ×2 (09:44→21:10)
[2017-01-30] MEDS: PARoxetine HCL 10 MG TABLET (FP) PO SCH (09:44)
[2017-01-30] MEDS: risperiDONE 0.5 MG TABLET (FP) PO SCH ×2 (09:45→21:10)
[2017-01-30] MEDS: PRENATAL VITAMINS W/ FOLIC ACID TABLET (FP) PO SCH (09:45)
[2017-01-30] MEDS: IBUPROFEN 400 MG TABLET (FP) PO PRN ×2 (09:47→21:08)
[2017-01-30] MEDS: traZODone HCL 50 MG TABLET (FP) PO SCH (21:08)
[2017-01-30] MEDS: THIAMINE HCL 100 MG TABLET (FP) PO SCH (21:08)
[2017-01-30] MEDS: guaiFENesin/D-METHORPHAN HB 10 ML UNIT-DOSE CUPS PO PRN (21:09)
[2017-01-31] MEDS: GABAPENTIN 300 MG CAPSULE (FP) PO SCH ×3 (06:21→21:12)
[2017-01-31] MEDS: BACITRACIN 0.9 GM PACKET TP SCH ×2 (09:35→21:12)
[2017-01-31] MEDS: BUDESONIDE/FORMETEROL FUMARATE 160/4.5 mcg INHALER IH SCH ×2 (09:35→21:12)
[2017-01-31] MEDS: PARoxetine HCL 10 MG TABLET (FP) PO SCH (09:35)
[2017-01-31] MEDS: NICOTINE 21 MG/24 HOURS TOPICAL PATCH TD SCH (09:35)
[2017-01-31] MEDS: risperiDONE 0.5 MG TABLET (FP) PO SCH ×2 (09:36→21:12)
[2017-01-31] MEDS: amLODIPine BESYLATE 2.5 MG TABLET (FP) PO SCH (09:36)
[2017-01-31] MEDS: PRENATAL VITAMINS W/ FOLIC ACID TABLET (FP) PO SCH (09:36)
[2017-01-31] MEDS: traZODone HCL 50 MG TABLET (FP) PO SCH (21:12)
[2017-01-31] MEDS: THIAMINE HCL 100 MG TABLET (FP) PO SCH (21:12)
[2017-02-01] MEDS: GABAPENTIN 300 MG CAPSULE (FP) PO SCH ×3 (06:13→21:24)
[2017-02-01] MEDS: MENTHOL/PHENOL 1 EACH UD MM PRN (06:16)
[2017-02-01] MEDS: risperiDONE 0.5 MG TABLET (FP) PO SCH ×2 (10:00→21:26)
[2017-02-01] MEDS: PARoxetine HCL 10 MG TABLET (FP) PO SCH (10:00)
[2017-02-01] MEDS: BUDESONIDE/FORMETEROL FUMARATE 160/4.5 mcg INHALER IH SCH ×2 (10:00→21:26)
[2017-02-01] MEDS: amLODIPine BESYLATE 2.5 MG TABLET (FP) PO SCH (10:00)
[2017-02-01] MEDS: PRENATAL VITAMINS W/ FOLIC ACID TABLET (FP) PO SCH (10:00)
[2017-02-01] MEDS: NICOTINE 21 MG/24 HOURS TOPICAL PATCH TD SCH (10:00)
[2017-02-01] MEDS: BACITRACIN 0.9 GM PACKET TP SCH ×2 (10:06→21:23)
[2017-02-01] MEDS ORDERED: GABAPENTIN 300 MG CAPSULE (FP) PO ONE (10:45)
[2017-02-01] MEDS: IBUPROFEN 400 MG TABLET (FP) PO PRN ×2 (11:01→21:25)
[2017-02-01] MEDS: THIAMINE HCL 100 MG TABLET (FP) PO SCH (21:24)
[2017-02-01] MEDS: traZODone HCL 50 MG TABLET (FP) PO SCH (21:24)
[2017-02-02] MEDS: GABAPENTIN 300 MG CAPSULE (FP) PO SCH ×3 (06:14→21:22)
[2017-02-02] MEDS: NICOTINE 21 MG/24 HOURS TOPICAL PATCH TD SCH (10:28)
[2017-02-02] MEDS: amLODIPine BESYLATE 2.5 MG TABLET (FP) PO SCH (10:29)
[2017-02-02] MEDS: BACITRACIN 0.9 GM PACKET TP SCH ×2 (10:29→21:24)
[2017-02-02] MEDS: PRENATAL VITAMINS W/ FOLIC ACID TABLET (FP) PO SCH (10:29)
[2017-02-02] MEDS: PARoxetine HCL 10 MG TABLET (FP) PO SCH (10:29)
[2017-02-02] MEDS: BUDESONIDE/FORMETEROL FUMARATE 160/4.5 mcg INHALER IH SCH ×2 (10:30→21:23)
[2017-02-02] MEDS: risperiDONE 0.5 MG TABLET (FP) PO SCH ×2 (10:30→21:22)
[2017-02-02] MEDS: IBUPROFEN 400 MG TABLET (FP) PO PRN (18:55)
[2017-02-02] MEDS: THIAMINE HCL 100 MG TABLET (FP) PO SCH (21:22)
[2017-02-02] MEDS: traZODone HCL 50 MG TABLET (FP) PO SCH (21:22)
[2017-02-03] MEDS: GABAPENTIN 300 MG CAPSULE (FP) PO SCH ×3 (06:16→21:16)
[2017-02-03] MEDS: BUDESONIDE/FORMETEROL FUMARATE 160/4.5 mcg INHALER IH SCH ×2 (10:10→21:19)
[2017-02-03] MEDS: PRENATAL VITAMINS W/ FOLIC ACID TABLET (FP) PO SCH (10:10)
[2017-02-03] MEDS: risperiDONE 0.5 MG TABLET (FP) PO SCH ×2 (10:10→21:16)
[2017-02-03] MEDS: amLODIPine BESYLATE 2.5 MG TABLET (FP) PO SCH (10:10)
[2017-02-03] MEDS: BACITRACIN 0.9 GM PACKET TP SCH ×2 (10:10→21:18)
[2017-02-03] MEDS: PARoxetine HCL 10 MG TABLET (FP) PO SCH (10:10)
[2017-02-03] MEDS: NICOTINE 21 MG/24 HOURS TOPICAL PATCH TD SCH (10:11)
[2017-02-03] MEDS: MENTHOL/PHENOL 1 EACH UD MM PRN (10:12)
--- NOTE | 2017-02-03 11:38 | PN ---
[facility] Progress Note Note: sore throat,pain in left ear,pharynx injected,uri,amoxicillin 500 mgs po tid for 7 days cmp in am by patient requested
[2017-02-03] MEDS: IBUPROFEN 400 MG TABLET (FP) PO PRN (11:50)
[2017-02-03] MEDS: AMOXICILLIN 500 MG CAPSULE (FP) PO SCH ×2 (13:05→21:18)
[2017-02-03] MEDS: THIAMINE HCL 100 MG TABLET (FP) PO SCH (21:16)
[2017-02-03] MEDS: traZODone HCL 50 MG TABLET (FP) PO SCH (21:16)
[2017-02-03] MEDS: diphenhydrAMINE HCL 50 MG CAPSULE PO PRN (21:18)
[2017-02-04] MEDS: AMOXICILLIN 500 MG CAPSULE (FP) PO SCH ×3 (06:14→21:25)
[2017-02-04] MEDS: GABAPENTIN 300 MG CAPSULE (FP) PO SCH ×3 (06:15→21:25)
[2017-02-04] MEDS: MENTHOL/PHENOL 1 EACH UD MM PRN ×2 (06:16→10:21)
[2017-02-04 10:00] LABS: ALBUMIN 3.6 g/dl (3.4-5.0); ANION GAP 8 (8-16); BILIRUBIN,TOTAL 0.3 mg/dL (0.2-1.0); CALCIUM 9.5 mg/dL (8.5-10.1); CO2 30 mmol/L (21-32); CREATININE 0.7 mg/dL (0.55-1.02); GLUCOSE,RANDOM 114 mg/dL (74-106); SGOT/AST 17 U/L (15-37); SGPT/ALT 18 U/L (12-78); TOT PROT 7.7 g/dl (6.4-8.2)
[2017-02-04 10:01] LABS: ALK PHOS 88 U/L (45-117)
[2017-02-04] MEDS: BUDESONIDE/FORMETEROL FUMARATE 160/4.5 mcg INHALER IH SCH ×2 (10:16→21:26)
[2017-02-04] MEDS: PRENATAL VITAMINS W/ FOLIC ACID TABLET (FP) PO SCH (10:16)
[2017-02-04] MEDS: BACITRACIN 0.9 GM PACKET TP SCH ×2 (10:16→21:26)
[2017-02-04] MEDS: risperiDONE 0.5 MG TABLET (FP) PO SCH ×2 (10:16→21:26)
[2017-02-04] MEDS: amLODIPine BESYLATE 2.5 MG TABLET (FP) PO SCH (10:16)
[2017-02-04] MEDS: PARoxetine HCL 10 MG TABLET (FP) PO SCH (10:16)
[2017-02-04] MEDS: NICOTINE 21 MG/24 HOURS TOPICAL PATCH TD SCH (10:17)
[2017-02-04] MEDS: IBUPROFEN 400 MG TABLET (FP) PO PRN ×2 (10:18→19:28)
[2017-02-04] MEDS: THIAMINE HCL 100 MG TABLET (FP) PO SCH (21:25)
[2017-02-04] MEDS: traZODone HCL 50 MG TABLET (FP) PO SCH (21:25)
[2017-02-05] MEDS: AMOXICILLIN 500 MG CAPSULE (FP) PO SCH ×3 (06:02→22:00)
[2017-02-05] MEDS: GABAPENTIN 300 MG CAPSULE (FP) PO SCH ×3 (06:02→22:00)
[2017-02-05] MEDS: COLLOIDAL OATMEAL 1 BAR EACH TP PRN (06:15)
[2017-02-05] MEDS ORDERED: PT OWN MED DRAWER 7, Y5N ONE ×2 (09:00→19:32)
[2017-02-05] MEDS: amLODIPine BESYLATE 2.5 MG TABLET (FP) PO SCH (10:19)
[2017-02-05] MEDS: PRENATAL VITAMINS W/ FOLIC ACID TABLET (FP) PO SCH (10:19)
[2017-02-05] MEDS: PARoxetine HCL 10 MG TABLET (FP) PO SCH (10:20)
[2017-02-05] MEDS: risperiDONE 0.5 MG TABLET (FP) PO SCH ×2 (10:20→22:00)
[2017-02-05] MEDS: BACITRACIN 0.9 GM PACKET TP SCH ×2 (10:20→22:00)
[2017-02-05] MEDS: NICOTINE 21 MG/24 HOURS TOPICAL PATCH TD SCH (10:21)
[2017-02-05] MEDS: BUDESONIDE/FORMETEROL FUMARATE 160/4.5 mcg INHALER IH SCH ×2 (10:21→22:00)
[2017-02-05] MEDS: hydrOXYzine PAMOATE 25 MG CAPSULE (FP) PO PRN (11:05)
[2017-02-05] MEDS: diphenhydrAMINE HCL 50 MG CAPSULE PO PRN (21:59)
[2017-02-05] MEDS: THIAMINE HCL 100 MG TABLET (FP) PO SCH (22:00)
[2017-02-05] MEDS: traZODone HCL 50 MG TABLET (FP) PO SCH (22:00)
[2017-02-05] MEDS: MENTHOL/PHENOL 1 EACH UD MM PRN (22:00)
[2017-02-06] MEDS: AMOXICILLIN 500 MG CAPSULE (FP) PO SCH ×3 (06:45→21:09)
[2017-02-06] MEDS: GABAPENTIN 300 MG CAPSULE (FP) PO SCH ×3 (06:45→21:09)
[2017-02-06] MEDS ORDERED: PT OWN MED DRAWER 7, Y5N ONE (09:01)
[2017-02-06] MEDS: BUDESONIDE/FORMETEROL FUMARATE 160/4.5 mcg INHALER IH SCH ×2 (09:44→21:10)
[2017-02-06] MEDS: BACITRACIN 0.9 GM PACKET TP SCH ×2 (09:44→21:09)
[2017-02-06] MEDS: NICOTINE 21 MG/24 HOURS TOPICAL PATCH TD SCH (09:44)
[2017-02-06] MEDS: amLODIPine BESYLATE 2.5 MG TABLET (FP) PO SCH (09:44)
[2017-02-06] MEDS: PRENATAL VITAMINS W/ FOLIC ACID TABLET (FP) PO SCH (09:44)
[2017-02-06] MEDS: risperiDONE 0.5 MG TABLET (FP) PO SCH ×2 (09:45→21:10)
[2017-02-06] MEDS: PARoxetine HCL 10 MG TABLET (FP) PO SCH (09:45)
[2017-02-06] MEDS: MENTHOL/PHENOL 1 EACH UD MM PRN ×2 (10:10→21:12)
[2017-02-06] MEDS: IBUPROFEN 400 MG TABLET (FP) PO PRN (19:22)
[2017-02-06] MEDS: THIAMINE HCL 100 MG TABLET (FP) PO SCH (21:08)
[2017-02-06] MEDS: traZODone HCL 50 MG TABLET (FP) PO SCH (21:08)
[2017-02-06] MEDS: diphenhydrAMINE HCL 50 MG CAPSULE PO PRN (21:10)
[2017-02-07] MEDS: GABAPENTIN 300 MG CAPSULE (FP) PO SCH ×3 (06:01→21:20)
[2017-02-07] MEDS: AMOXICILLIN 500 MG CAPSULE (FP) PO SCH ×3 (06:01→21:21)
[2017-02-07] MEDS ORDERED: PT OWN MED DRAWER 7, Y5N ONE (08:51)
[2017-02-07] MEDS: PRENATAL VITAMINS W/ FOLIC ACID TABLET (FP) PO SCH (09:48)
[2017-02-07] MEDS: PARoxetine HCL 10 MG TABLET (FP) PO SCH (09:49)
[2017-02-07] MEDS: BACITRACIN 0.9 GM PACKET TP SCH ×2 (09:49→21:20)
[2017-02-07] MEDS: risperiDONE 0.5 MG TABLET (FP) PO SCH ×2 (09:49→21:20)
[2017-02-07] MEDS: amLODIPine BESYLATE 2.5 MG TABLET (FP) PO SCH (09:49)
[2017-02-07] MEDS: NICOTINE 21 MG/24 HOURS TOPICAL PATCH TD SCH (09:50)
[2017-02-07] MEDS: BUDESONIDE/FORMETEROL FUMARATE 160/4.5 mcg INHALER IH SCH ×2 (09:50→21:22)
[2017-02-07] MEDS: traZODone HCL 50 MG TABLET (FP) PO SCH (21:20)
[2017-02-07] MEDS: THIAMINE HCL 100 MG TABLET (FP) PO SCH (21:20)
[2017-02-07] MEDS: diphenhydrAMINE HCL 50 MG CAPSULE PO PRN (21:21)
[2017-02-07] MEDS: MENTHOL/PHENOL 1 EACH UD MM PRN (21:22)
[2017-02-08] MEDS: GABAPENTIN 300 MG CAPSULE (FP) PO SCH ×3 (06:17→21:23)
[2017-02-08] MEDS: AMOXICILLIN 500 MG CAPSULE (FP) PO SCH ×3 (06:17→21:26)
[2017-02-08] MEDS: BUDESONIDE/FORMETEROL FUMARATE 160/4.5 mcg INHALER IH SCH ×2 (10:31→21:25)
[2017-02-08] MEDS: NICOTINE 21 MG/24 HOURS TOPICAL PATCH TD SCH (10:31)
[2017-02-08] MEDS: BACITRACIN 0.9 GM PACKET TP SCH ×2 (10:31→21:26)
[2017-02-08] MEDS: PRENATAL VITAMINS W/ FOLIC ACID TABLET (FP) PO SCH (10:32)
[2017-02-08] MEDS: risperiDONE 0.5 MG TABLET (FP) PO SCH ×2 (10:32→21:23)
[2017-02-08] MEDS: PARoxetine HCL 10 MG TABLET (FP) PO SCH (10:32)
[2017-02-08] MEDS: amLODIPine BESYLATE 2.5 MG TABLET (FP) PO SCH (10:32)
[2017-02-08] MEDS: THIAMINE HCL 100 MG TABLET (FP) PO SCH (21:23)
[2017-02-08] MEDS: traZODone HCL 50 MG TABLET (FP) PO SCH (21:23)
[2017-02-08] MEDS: diphenhydrAMINE HCL 50 MG CAPSULE PO PRN (21:25)
[2017-02-09] MEDS: GABAPENTIN 300 MG CAPSULE (FP) PO SCH ×3 (06:07→21:10)
[2017-02-09] MEDS: AMOXICILLIN 500 MG CAPSULE (FP) PO SCH ×3 (06:07→21:10)
[2017-02-09] MEDS: NICOTINE 21 MG/24 HOURS TOPICAL PATCH TD SCH (10:17)
[2017-02-09] MEDS: PRENATAL VITAMINS W/ FOLIC ACID TABLET (FP) PO SCH (10:17)
[2017-02-09] MEDS: amLODIPine BESYLATE 2.5 MG TABLET (FP) PO SCH (10:17)
[2017-02-09] MEDS: BACITRACIN 0.9 GM PACKET TP SCH ×2 (10:17→21:10)
[2017-02-09] MEDS: PARoxetine HCL 10 MG TABLET (FP) PO SCH (10:18)
[2017-02-09] MEDS: risperiDONE 0.5 MG TABLET (FP) PO SCH ×2 (10:18→21:10)
[2017-02-09] MEDS: BUDESONIDE/FORMETEROL FUMARATE 160/4.5 mcg INHALER IH SCH ×2 (10:18→21:10)
[2017-02-09] MEDS: traZODone HCL 50 MG TABLET (FP) PO SCH (21:10)
[2017-02-09] MEDS: THIAMINE HCL 100 MG TABLET (FP) PO SCH (21:10)
[2017-02-09] MEDS: MENTHOL/PHENOL 1 EACH UD MM PRN (21:11)
[2017-02-10] MEDS: AMOXICILLIN 500 MG CAPSULE (FP) PO SCH ×2 (06:10→13:05)
[2017-02-10] MEDS: GABAPENTIN 300 MG CAPSULE (FP) PO SCH ×3 (06:10→21:18)
[2017-02-10] MEDS ORDERED: PT OWN MED DRAWER 7, Y5N ONE ×3 (08:30→15:21)
[2017-02-10] MEDS: NICOTINE 21 MG/24 HOURS TOPICAL PATCH TD SCH (10:07)
[2017-02-10] MEDS: BACITRACIN 0.9 GM PACKET TP SCH ×2 (10:08→21:18)
[2017-02-10] MEDS: PRENATAL VITAMINS W/ FOLIC ACID TABLET (FP) PO SCH (10:08)
[2017-02-10] MEDS: risperiDONE 0.5 MG TABLET (FP) PO SCH ×2 (10:08→21:18)
[2017-02-10] MEDS: amLODIPine BESYLATE 2.5 MG TABLET (FP) PO SCH (10:08)
[2017-02-10] MEDS: PARoxetine HCL 10 MG TABLET (FP) PO SCH (10:09)
[2017-02-10] MEDS: BUDESONIDE/FORMETEROL FUMARATE 160/4.5 mcg INHALER IH SCH ×2 (10:09→21:19)
[2017-02-10] MEDS: THIAMINE HCL 100 MG TABLET (FP) PO SCH (21:18)
[2017-02-10] MEDS: traZODone HCL 50 MG TABLET (FP) PO SCH (21:20)
[2017-02-10] MEDS: COLLOIDAL OATMEAL 1 BAR EACH TP PRN (21:21)
[2017-02-11] MEDS: GABAPENTIN 300 MG CAPSULE (FP) PO SCH ×3 (06:01→21:15)
[2017-02-11] MEDS: NICOTINE 21 MG/24 HOURS TOPICAL PATCH TD SCH (10:02)
[2017-02-11] MEDS: PARoxetine HCL 10 MG TABLET (FP) PO SCH (10:03)
[2017-02-11] MEDS: risperiDONE 0.5 MG TABLET (FP) PO SCH ×2 (10:03→21:15)
[2017-02-11] MEDS: amLODIPine BESYLATE 2.5 MG TABLET (FP) PO SCH (10:03)
[2017-02-11] MEDS: PRENATAL VITAMINS W/ FOLIC ACID TABLET (FP) PO SCH (10:03)
[2017-02-11] MEDS: BUDESONIDE/FORMETEROL FUMARATE 160/4.5 mcg INHALER IH SCH ×2 (10:03→21:16)
[2017-02-11] MEDS: BACITRACIN 0.9 GM PACKET TP SCH ×2 (10:03→21:16)
[2017-02-11] MEDS: traZODone HCL 50 MG TABLET (FP) PO SCH (21:15)
[2017-02-11] MEDS: THIAMINE HCL 100 MG TABLET (FP) PO SCH (21:16)
[2017-02-11] MEDS: MENTHOL/PHENOL 1 EACH UD MM PRN (21:17)
[2017-02-12] MEDS: GABAPENTIN 300 MG CAPSULE (FP) PO SCH ×3 (05:59→21:15)
[2017-02-12] MEDS: PARoxetine HCL 10 MG TABLET (FP) PO SCH (10:06)
[2017-02-12] MEDS: amLODIPine BESYLATE 2.5 MG TABLET (FP) PO SCH (10:06)
[2017-02-12] MEDS: risperiDONE 0.5 MG TABLET (FP) PO SCH ×2 (10:06→21:15)
[2017-02-12] MEDS: BUDESONIDE/FORMETEROL FUMARATE 160/4.5 mcg INHALER IH SCH ×2 (10:06→21:14)
[2017-02-12] MEDS: BACITRACIN 0.9 GM PACKET TP SCH ×2 (10:06→21:15)
[2017-02-12] MEDS: PRENATAL VITAMINS W/ FOLIC ACID TABLET (FP) PO SCH (10:06)
[2017-02-12] MEDS: NICOTINE 21 MG/24 HOURS TOPICAL PATCH TD SCH (10:06)
[2017-02-12] MEDS: traZODone HCL 50 MG TABLET (FP) PO SCH (21:15)
[2017-02-12] MEDS: THIAMINE HCL 100 MG TABLET (FP) PO SCH (21:15)
[2017-02-12] MEDS: MENTHOL/PHENOL 1 EACH UD MM PRN (21:17)
[2017-02-13] MEDS: GABAPENTIN 300 MG CAPSULE (FP) PO SCH ×3 (06:21→21:28)
[2017-02-13] MEDS: NICOTINE 21 MG/24 HOURS TOPICAL PATCH TD SCH (10:06)
[2017-02-13] MEDS: amLODIPine BESYLATE 2.5 MG TABLET (FP) PO SCH (10:06)
[2017-02-13] MEDS: BACITRACIN 0.9 GM PACKET TP SCH ×2 (10:06→21:27)
[2017-02-13] MEDS: PRENATAL VITAMINS W/ FOLIC ACID TABLET (FP) PO SCH (10:07)
[2017-02-13] MEDS: risperiDONE 0.5 MG TABLET (FP) PO SCH ×2 (10:07→21:28)
[2017-02-13] MEDS: PARoxetine HCL 10 MG TABLET (FP) PO SCH (10:07)
[2017-02-13] MEDS: BUDESONIDE/FORMETEROL FUMARATE 160/4.5 mcg INHALER IH SCH ×2 (10:07→21:27)
[2017-02-13] MEDS ORDERED: PT OWN MED DRAWER 7, Y5N ONE ×5 (10:45→15:10)
[2017-02-13] MEDS: MENTHOL/PHENOL 1 EACH UD MM PRN ×2 (13:03→21:27)
[2017-02-13] MEDS: hydrOXYzine PAMOATE 25 MG CAPSULE (FP) PO PRN (13:03)
[2017-02-13] MEDS: THIAMINE HCL 100 MG TABLET (FP) PO SCH (21:28)
[2017-02-13] MEDS: traZODone HCL 50 MG TABLET (FP) PO SCH (21:28)
[2017-02-14] MEDS: GABAPENTIN 300 MG CAPSULE (FP) PO SCH ×3 (06:21→21:13)
[2017-02-14] MEDS: BACITRACIN 0.9 GM PACKET TP SCH ×2 (09:46→21:13)
[2017-02-14] MEDS: NICOTINE 21 MG/24 HOURS TOPICAL PATCH TD SCH (09:46)
[2017-02-14] MEDS: risperiDONE 0.5 MG TABLET (FP) PO SCH ×2 (09:47→21:14)
[2017-02-14] MEDS: amLODIPine BESYLATE 2.5 MG TABLET (FP) PO SCH (09:47)
[2017-02-14] MEDS: PRENATAL VITAMINS W/ FOLIC ACID TABLET (FP) PO SCH (09:47)
[2017-02-14] MEDS: PARoxetine HCL 10 MG TABLET (FP) PO SCH (09:47)
[2017-02-14] MEDS: BUDESONIDE/FORMETEROL FUMARATE 160/4.5 mcg INHALER IH SCH ×2 (09:48→21:13)
[2017-02-14] MEDS: MENTHOL/PHENOL 1 EACH UD MM PRN ×2 (09:49→21:13)
[2017-02-14] MEDS: COLLOIDAL OATMEAL 1 BAR EACH TP PRN (10:26)
[2017-02-14] MEDS ORDERED: PT OWN MED DRAWER 7, Y5N ONE ×2 (10:30→14:24)
[2017-02-14] MEDS: THIAMINE HCL 100 MG TABLET (FP) PO SCH (21:13)
[2017-02-14] MEDS: traZODone HCL 50 MG TABLET (FP) PO SCH (21:13)
[2017-02-15] MEDS: GABAPENTIN 300 MG CAPSULE (FP) PO SCH (06:26)
[2017-02-15 06:53] VITALS: BP 136/89; PULSE 84; TEMP 98.1
[2017-02-15] MEDS ORDERED: PT OWN MED DRAWER 7, Y5N ONE (08:26)
--- NOTE | 2017-02-15 08:50 | PN ---
Psychiatric Progress Note Vital Signs: Vital Signs Period Temp Pulse Resp BP Sys/Truong Pulse Ox Last 24 Hr 98.1 F 84-105 16-18 106-136/70-89 Date of Session: 02/15/17 Chief Complaint:: Discharge visit HPI: Patient addressed Alcohol dependence comorbid with ,Bipolar disorder. ROS: Significant for COPD,BA. Current Medications: Active Medications Generic Name Dose Route Start Last Admin Trade Name Freq PRN Reason Stop Dose Admin Acetaminophen 650 mg 01/15/17 15:44 01/28/17 07:04 Tylenol - PO 650 mg Q4H PRN Administration FEVER OR PAIN Al Hydroxide/Mg Hydroxide 30 ml 01/15/17 15:44 Mylanta Oral Suspension - PO Q6H PRN DYSPEPSIA Albuterol Sulfate 2 puff 01/15/17 15:49 01/27/17 10:41 Ventolin Hfa Inhaler - IH 2 puff Q4H PRN Administration ASTHMA Amlodipine Besylate 2.5 mg 01/16/17 10:00 02/14/17 09:47 Norvasc - PO 2.5 mg DAILY TERESA Administration Bacitracin 0.9 gm 01/28/17 22:00 02/14/17 21:13 Bacitracin - TP 0.9 gm BID TERESA Administration Budesonide/Formoterol Fumarate 2 puff 01/15/17 22:00 02/14/17 21:13 Symbicort 160/4.5mcg - IH 2 puff BID TERESA Administration Colloidal Oatmeal 1 applic 01/21/17 12:46 02/14/17 10:26 Aveeno Soap - TP 1 bar DAILY PRN Administration HYGEINE Diphenhydramine HCl 50 mg 01/15/17 15:44 02/08/17 21:25 Benadryl - PO 50 mg HSMR1 PRN Administration INSOMNIA Eucalyptus/Menthol/Phenol/Sorbitol 1 each 01/15/17 15:44 02/14/17 21:13 Cepastat Lozenge - MM 1 each Q4H PRN Administration SORE THROAT Gabapentin 300 mg 02/01/17 14:00 02/15/17 06:26 Neurontin - PO 300 mg TID TERESA Administration Guaifenesin 10 ml 01/15/17 15:44 01/30/17 21:09 Robitussin Dm - PO 10 ml Q6H PRN Administration COUGH Hydroxyzine Pamoate 25 mg 01/15/17 15:44 02/13/17 13:03 Vistaril - PO 25 mg Q4H PRN Administration AGITATION Ibuprofen 800 mg 01/28/17 14:13 02/06/17 19:22 Motrin - PO 800 mg Q6H PRN Administration SEVERE PAIN Loperamide HCl 4 mg 01/15/17 15:44 Imodium - PO Q6H PRN DIARRHEA Magnesium Citrate 300 ml 01/15/17 15:44 Citroma - PO Q48H PRN CONSTIPATION Magnesium Hydroxide 30 ml 01/15/17 15:44 Milk Of Magnesia - PO DAILY PRN CONSTIPATION Nicotine 21 mg 01/15/17 16:30 02/14/17 09:46 Nicoderm Patch - TD 21 mg DAILY TERESA Administration Paroxetine HCl 30 mg 01/20/17 14:45 02/14/17 09:47 Paxil - PO 30 mg DAILY TERESA Administration Multivit/Folic Acid/Iron 1 tab 01/16/17 10:00 02/14/17 09:47 Vitamins (Sjr) - PO 1 tab DAILY TERESA Administration Pseudoephedrine/Triprolidine 1 combo 01/15/17 15:44 02/12/17 16:07 Actifed - PO 1 combo TID PRN Administration NASAL CONGESTION Risperidone 0.5 mg 01/16/17 22:00 02/14/17 21:14 Risperdal - PO 0.5 mg BID TERESA Administration Thiamine HCl 100 mg 01/15/17 22:00 02/14/17 21:13 Vitamin B1 - PO 100 mg HS TERESA Administration Trazodone HCl 50 mg 01/19/17 22:00 02/14/17 21:13 Desyrel - PO 50 mg HS TERESA Administration Current Side Effect: No Lab tests ordered: No Lab tests reviewed: Yes Provider note:: Patient completed this program.She has met her treatment goals and will continue to address her issues on outpatient basis at [facility] .Patient continues to find that Trazodone 50 mg po hs,Risperidone 0 ,5 mg po bid,Neurontin 300 mg po tid help to cope with her anxiety,mood instability and sleeping difficulties.Scripts for 30 days supply provided. Therapy provided focusing on relapse prevention.Coping skills,support system utilization to maintain recovery has been discussed with the patient.Supportive therapy provided. patient is stable for discharge today. Total face to face time:: 30 Mental Status Exam - Mental Status Exam Alert and Oriented to: Time, Place, Person Cognitive Function: Grossly Intact Patient Appearance: Well Groomed Mood: Euthymic Affect: Labile Patient Behavior: Cooperative Speech Pattern: Clear Voice Loudness: Normal Thought Process: Goal Oriented Thought Disorder: Not Present Hallucinations: Denies Suicidal Ideation: Denies Homicidal Ideation: Denies Insight/Judgement: Fair Sleep: Fair Appetite: Good Muscle strength/Tone: Normal Gait/Station: Normal Psychiatric Treatment Plan - Problem List (1) Asthma Current Visit: Yes Qualifiers: Asthma severity: mild intermittent (2) Bipolar disorder Current Visit: Yes Qualifiers: Current episode severity: unspecified (3) COPD (chronic obstructive pulmonary disease) Current Visit: Yes (4) Leg fracture, right Current Visit: Yes (5) Alcohol dependence Current Visit: Yes
[2017-02-15] MEDS: amLODIPine BESYLATE 2.5 MG TABLET (FP) PO SCH (09:10)
[2017-02-15] MEDS: risperiDONE 0.5 MG TABLET (FP) PO SCH (09:10)
[2017-02-15] MEDS: PRENATAL VITAMINS W/ FOLIC ACID TABLET (FP) PO SCH (09:10)
[2017-02-15] MEDS: PARoxetine HCL 10 MG TABLET (FP) PO SCH (09:10)
[2017-02-15] MEDS: NICOTINE 21 MG/24 HOURS TOPICAL PATCH TD SCH (09:12)
[2017-02-15] MEDS: BACITRACIN 0.9 GM PACKET TP SCH (09:12)
[2017-02-15] MEDS: BUDESONIDE/FORMETEROL FUMARATE 160/4.5 mcg INHALER IH SCH (09:12)
== END 2017-02-15 09:25 | disposition home or self-care (01) | DRG 895 ==
LOC: YASAS 11:41 → Y6N 16:10 → Y3E 01-19 10:33
PROVIDERS: ADMIT Psychiatry & Neurology Psychiatry; ATTEND Internal Medicine
PROC: HZ2ZZZZ Detoxification Services for Substance Abuse Treatment (ICD-10-PCS; 2017-01-19)
PROC: HZ42ZZZ Group Counseling for Substance Abuse Treatment, Cognitive-Behavioral (ICD-10-PCS; principal; 2017-02-15)
DX: F19.20 Other psychoactive substance dependence, uncomplicated (principal); F10.20 Alcohol dependence, uncomplicated; F31.9 Bipolar disorder, unspecified; F41.8 Other specified anxiety disorders; J45.20 Mild intermittent asthma, uncomplicated; J44.9 Chronic obstructive pulmonary disease, unspecified; R26.89 Other abnormalities of gait and mobility; Z99.89 Dependence on other enabling machines and devices; Z59.0 Homelessness
CPT/HCPCS: 36415; 73560-TC-LT; 80053; 81003; 82550; 84075; 84450; 84484; 85027; 86593; 93005; 93010